=== PATIENT | female | born 1985 | race Native Hawaiian/Other Pacific Islander ===

== ENCOUNTER 2017-02-13 17:22 | Emergency (ER) | payer OTHER ==
[~2017-02-13] VITALS: Ht 162.6 cm; Wt 73.0 kg
== END 2017-02-13 18:14 | disposition home or self-care (01) ==
LOC: ED 17:22
DX: R07.81 Pleurodynia (principal)
CPT/HCPCS: 99281

== ENCOUNTER 2018-05-29 14:19 | Emergency (ER) | payer OTHER ==
[~2018-05-29] VITALS: Ht 165.1 cm; Wt 77.1 kg
[2018-05-29 14:30] VITALS: TEMP 98.1
[2018-05-29 15:14] LABS: PLATELET COUNT 255 K/uL (152-353)
[2018-05-29 15:39] VITALS: BP 118/72
== END 2018-05-29 15:44 | disposition home or self-care (01) ==
LOC: ED 14:19
DX: R31.9 Hematuria, unspecified (principal); Z98.890 Other specified postprocedural states
CPT/HCPCS: 36415; 81000; 85027; 99283